=== PATIENT | female | born 1965 | race Caucasian/White ===

== ENCOUNTER 2017-09-01 08:58 | Day surgery (SDC) | payer OTHER ==
[2017-08-24 11:16] VITALS: BMI 24.9
[2017-09-01] MEDS ORDERED: PROPOFOL 20 ML ONE ×3 (09:50→12:38)
[2017-09-01] MEDS ORDERED: MIDAZOLAM HCL 2 MG/2 ML SINGLE DOSE VIAL ONE (10:15)
[2017-09-01] MEDS ORDERED: BUPIVACAINE HCL/PF (5 MG/ML) 30 ML VIAL IJ ONE (10:15)
[2017-09-01] MEDS ORDERED: DEXAMETHASONE SOD PHOSPHATE/PF 10 MG/ML SDV ONE (10:15)
[2017-09-01] MEDS ORDERED: ceFAZolin SODIUM 1 GM VIAL ONE (12:05)
[2017-09-01 13:29] VITALS: TEMP 97.3
[2017-09-01 13:57] VITALS: BP 106/60; PULSE 69
--- NOTE | 2017-09-01 18:57 | OP ---
DATE OF OPERATION: 09/01/2017 PREOPERATIVE DIAGNOSIS: Left basal joint osteoarthritis. POSTOPERATIVE DIAGNOSIS: Left basal joint osteoarthritis. OPERATIVE PROCEDURE: 1. Left basal joint arthroplasty. 2. Left carpometacarpal joint tendon transfer. SURGEON: Sandeep Bhatt MD ANESTHESIA: Regional. COMPLICATIONS: None. ESTIMATED BLOOD LOSS: Minimal. HOSE TESTER: HAMIDA Leach INDICATION FOR PROCEDURE: The patient is a 51-year-old female with the above finding, indicated for operative treatment. Risks, benefits, alternatives were discussed with patient at length. Proper informed consent was obtained. PROCEDURE: After proper identification of patient and correct operative site, patient brought to operating room, placed supine on the table, prominences well padded. Regional and sedation was given, adequate for procedure. The left upper extremity was prepped and draped in usual sterile fashion. A well-padded tourniquet was placed over the sterile prep. Intravenous antibiotics were given. Timeout procedure was performed. Left upper extremity was exsanguinated with Esmarch bandage. A curvilinear incision was made over the basal joint of the left thumb. This was a Beyer approach that was used. Thenar muscles were elevated off the carpometacarpal capsule, which was then divided longitudinally. Severe arthritis of the basal joint was noted, and a significant effusion was noted. The trapezium was then excised in a piecemeal fashion. Flexor carpi radialis tendon was intact. The arthroplasty was then held in place using 2 Arthrex Swivel-Lock anchors and an Arthrex FiberTape suture. These were placed into the base of the thumb metacarpal and the base of the index metacarpal. Excellent arthroplasty space was maintained. The capsule was then repaired and the dorsal tendon was then transferred to the dorsal capsule for additional stability. The skin was repaired using 4-0 Monocryl suture. Steri-Strips, sterile dressings, and a splint were placed. The patient was reversed from anesthesia and brought to the recovery room in stable condition. She tolerated the procedure well. HAMIDA Leach, the case assistant, was integral throughout the procedure. The procedure could not have been performed without a skilled operative case assistant. Jose Carlos [id number]
== END 2017-09-01 14:09 | disposition home or self-care (01) ==
LOC: FASU 08:58
PROVIDERS: ATTEND Orthopaedic Surgery Hand Surgery
PROC: 0RQT0ZZ Repair Left Carpometacarpal Joint, Open Approach (ICD-10-PCS; principal; 2017-09-01 11:00)
DX: M18.12 Unilateral primary osteoarthritis of first carpometacarpal joint, left hand (principal)
CPT/HCPCS: 84703; 94760